=== PATIENT | female | born 2000 | race Caucasian/White ===

== ENCOUNTER 2024-02-14 20:29 | Emergency (ER) | payer SELFPAY ==
[~2024-02-14] VITALS: Ht 172.7 cm; Wt 82.0 kg
[2024-02-14 20:37] VITALS: O2SAT 99
[2024-02-14 20:57] LABS: CLARITY URINE CLEAR (CLEAR); COLOR URINE YELLOW (YELLOW); GLUCOSE URINE NEGATIVE (NEGATIVE); KETONES URINE TRACE (NEGATIVE); LEUKOCYTE ESTERASE URINE NEGATIVE (NEGATIVE); NITRITE URINE NEGATIVE (NEGATIVE); OCCULT BLOOD URINE NEGATIVE (NEGATIVE); PROTEIN URINE NEGATIVE (NEGATIVE); SPECIFIC GRAVITY URINE 1.005 (1.005-1.030); UROBILINOGEN URINE 0.2 E.U./dL (0.2-1.0)
[2024-02-14 21:12] LABS: BASOPHILS % 0.2 % (0.0-2.0); EOSINOPHILS % 0.3 % (0.0-5.0); HEMATOCRIT. 39.8 % (36.0-48.0); HEMOGLOBIN. 13.5 g/dL (12.0-16.0); LYMPHOCYTES % 22.2 % (20.0-50.0); MEAN CORPUSCULAR VOLUME 88.1 fL (81.0-99.0); MEAN PLATELET VOLUME 7.6 fl (7.4-10.4); MONOCYTES % 4.7 % (2.0-8.0); NEUTROPHILS % 72.6 % (40.0-76.0); PLATELET 313 x1000/uL (130-400); RED BLOOD CELL COUNT 4.51 mill/uL (4.2-5.4); RED CELL DISTRIBUTION WIDTH 12.9 % (11.6-14.6); WHITE BLOOD COUNT 9.5 x1000/uL (4.5-11.0)
[2024-02-14 21:17] LABS: CHLORIDE 106 mEq/L (98-107); POTASSIUM 3.8 mEq/L (3.5-5.1); SODIUM 139 mEq/L (136-145)
[2024-02-14 21:18] LABS: CALCIUM 9.5 mg/dL (8.7-10.4); CARBON DIOXIDE 25 mEq/L (21-32)
[2024-02-14 21:23] LABS: CREATININE 0.8 mg/dL (0.6-1.0); GLUCOSE 90 mg/dL (70-105); UREA NITROGEN BLOOD 6 mg/dL (9-23)
[2024-02-14 21:25] LABS: ALANINE AMINOTRANSFERASE 19 IU/L (10-49); ALBUMIN 4.8 g/dL (3.2-4.8); ASPARTATE AMINOTRANSFERASE 17 IU/L (<34); BILIRUBIN DIRECT 0.1 mg/dL (<=3.0); BILIRUBIN TOTAL 0.5 mg/dL (0.1-1.0); PROTEIN TOTAL 7.6 g/dL (6.0-8.3)
[2024-02-14] MEDS: ONDANSETRON HCL 4MG/2ML INJ IV ONE (22:03)
[2024-02-14] MEDS: SODIUM CHLORIDE 0.9% 1,000 ML IV ONE (22:03)
[2024-02-14 22:50] LABS: HCG SCREEN NEGATIVE
[2024-02-15] MEDS ORDERED: ONDA4TAB50 MT (02:36)
[2024-02-15 03:10] VITALS: BP 124/72; PULSE 88; RESP 16; TEMP 98.2
== END 2024-02-15 03:25 | disposition home or self-care (01) ==
LOC: ER 20:29
DX: R10.31 Right lower quadrant pain (principal); E03.9 Hypothyroidism, unspecified; Z88.0 Allergy status to penicillin
CPT/HCPCS: 80076; 80048; 81003; 81025; 84703; 85025; 36415; 74177; 96374; 99285; 76830; 76856; J2405; J7030; Z7610 ×2